=== PATIENT | male | born 1965 | race Caucasian/White ===

== ENCOUNTER 2025-05-06 10:02 | Inpatient (IN) | payer OTHER ==
[~2025-05-06] VITALS: Ht 167.6 cm; Wt 81.8 kg
[2025-05-06 10:42] LABS: COVID AG,FIA SOURCE NASAL SWAB
[2025-05-06 10:42] LABS: PLATELET COUNT (AUTO) 319 K/uL (150-450); RED BLOOD CELL COUNT(AUTO) 4.70 MIL/uL (4.50-5.90); RED CELL DISTRIBUTION WIDTH 12.8 % (11.5-14.5); WHITE BLOOD COUNT (AUTO) 8.5 K/uL (4.5-11.0)
[2025-05-06 10:50] LABS: CALCIUM, TOTAL 9.2 mg/dL (8.8-10.5); CREATININE 0.89 mg/dL (0.60-1.30); GLOMERULAR FILTR. RATE CALC > 60 mL/min (>60); GLUCOSE,RANDOM 196 mg/dL (70-110); SODIUM SERUM 134 mmol/L (136-145); UREA NITROGEN, BLOOD 10 mg/dL (7-18)
[2025-05-06] MEDS: SULFAMETHOX/TRIMETH DS 800-160 MG/TABLET PO ONE (10:58)
[2025-05-06] MEDS: ACETAMINOPHEN 500 MG TABLET PO ONE (10:58)
[2025-05-06] MEDS: BACITRACIN 0.9 GM PACKET OINTMENT TP ONE (10:58)
[2025-05-06] MEDS: CEPHALEXIN MONOHYDRATE 500 MG CAPSULE PO ONE (10:59)
[2025-05-06 11:02] LABS: SARS-COV2 (COVID) ANTIGEN,FIA Negative (Negative)
[2025-05-06] MEDS: TAMSULOSIN HCL 0.4 MG CAPSULE PO ONE (11:24)
[2025-05-06] MEDS ORDERED: DEXTROSE 50%-WATER 25 GM/50 ML SYRINGE IVP PRN (12:45)
[2025-05-06] MEDS ORDERED: MAGNESIUM HYDROXIDE SUSPENSION 30 ML UDCUP PO PRN (12:45)
[2025-05-06] MEDS ORDERED: ACETAMINOPHEN 325 MG TABLET PO PRN (12:45)
[2025-05-06] MEDS ORDERED: SODIUM CHLORIDE 0.9% 1,000 ML IV ONE (12:45)
[2025-05-06] MEDS ORDERED: OxyCODONE HCL/ACETAMINOPHEN 5-325 MG TABLET PO PRN (12:45)
[2025-05-06] MEDS ORDERED: ZOLPIDEM TARTRATE 5 MG TABLET PO PRN (12:45)
[2025-05-06 13:33] LABS: APPEARANCE,URINE HAZY (CLEAR); GLUCOSE, URINE (UA) 300-500 mg/dL (NEGATIVE); LEUKOCYTE ESTERASE ,URINE NEGATIVE (NEGATIVE); NITRATE,URINE NEGATIVE (NEGATIVE); OCCULT BLOOD,URINE NEGATIVE (NEGATIVE); SPECIFIC GRAVITIY, URINE 1.023 (1.003-1.030)
[2025-05-06 13:39] LABS: AMPHET/METH SCREEN,URINE POSITIVE (NEGATIVE); BARBITURATE SCREEN, URINE NEGATIVE (NEGATIVE); CANNABINOID SCREEN,URINE NEGATIVE (NEGATIVE); COCAINE SCREEN,URINE NEGATIVE (NEGATIVE); METHADONE SCREEN, URINE NEGATIVE (NEGATIVE)
[2025-05-06 13:46] LABS: ALCOHOL, URINE DRUG SCREEN NEGATIVE (NEGATIVE)
[2025-05-06 13:47] LABS: PH,URINE DRUG SCREEN 8.0 (5.0-8.0)
[2025-05-06 15:03] VITALS: BP 136/84; PULSE 68; RESP 18; TEMP 98.6; O2SAT 98
[2025-05-06 18:40] LABS: GLUCOMETER DEV NAME(LOC) 6N.2C; GLUCOSE,POINT OF CARE 174 MG/DL (70-110)
[2025-05-06] MEDS: INSULIN LISPRO 100 UNITS/ML SQ PRN (18:53)
[2025-05-06 19:58] VITALS: BP 140/88; PULSE 79; RESP 18; TEMP 97.9; O2SAT 97
[2025-05-06] MEDS: SULFAMETHOX/TRIMETH DS 800-160 MG/TABLET PO SCH (20:50)
[2025-05-07 01:30] LABS: GLUCOMETER DEV NAME(LOC) 6N.2C; GLUCOSE,POINT OF CARE 216 MG/DL (70-110)
[2025-05-07 05:39] VITALS: BP 136/91; PULSE 77; RESP 20; TEMP 97.9; O2SAT 98
[2025-05-07] MEDS: FAMOTIDINE 20 MG TABLET PO SCH (09:00)
[2025-05-07 17:16] LABS: GLUCOMETER DEV NAME(LOC) 6S.2; GLUCOSE,POINT OF CARE 176 MG/DL (70-110)
[2025-05-07 18:26] LABS: GLUCOMETER DEV NAME(LOC) 6S.2; GLUCOSE,POINT OF CARE 138 MG/DL (70-110)
[2025-05-07 20:16] VITALS: BP 154/92; PULSE 77; RESP 19; TEMP 98.1; O2SAT 98
[2025-05-08 03:46] VITALS: BP 133/79; PULSE 67; RESP 18; TEMP 98.4; O2SAT 99
[2025-05-08 05:26] LABS: GLUCOMETER DEV NAME(LOC) 6N.2C; GLUCOSE,POINT OF CARE 192 MG/DL (70-110)
[2025-05-08] MEDS: POTASSIUM CHLORIDE 20 MEQ ER TABLET PO ONE (05:35)
[2025-05-08 06:30] LABS: GLUCOMETER DEV NAME(LOC) 6N.2C; GLUCOSE,POINT OF CARE 170 MG/DL (70-110)
[2025-05-08 08:25] VITALS: BP 137/82; PULSE 74; RESP 18; TEMP 98.1; O2SAT 98
[2025-05-08] MEDS: LOSARTAN POTASSIUM 25 MG TABLET PO ONE (11:18)
[2025-05-08 12:15] LABS: PLATELET COUNT (AUTO) 358 K/uL (150-450); RED BLOOD CELL COUNT(AUTO) 5.13 MIL/uL (4.50-5.90); RED CELL DISTRIBUTION WIDTH 12.9 % (11.5-14.5); WHITE BLOOD COUNT (AUTO) 6.6 K/uL (4.5-11.0)
[2025-05-08 12:23] LABS: CALCIUM, TOTAL 9.6 mg/dL (8.8-10.5); CREATININE 0.94 mg/dL (0.60-1.30); GLOMERULAR FILTR. RATE CALC > 60 mL/min (>60); GLUCOSE,RANDOM 171 mg/dL (70-110); SODIUM SERUM 135 mmol/L (136-145); UREA NITROGEN, BLOOD 12 mg/dL (7-18)
[2025-05-08 12:30] LABS: ASPARTATE AMINOTRANSFERASE 31 U/L (15-37); TOTAL PROTEIN, SERUM 7.6 g/dL (6.4-8.2)
[2025-05-08 14:10] LABS: GLUCOMETER DEV NAME(LOC) 6S.1D; GLUCOSE,POINT OF CARE 185 MG/DL (70-110)
[2025-05-08] MEDS ORDERED: LOSA-381 PO (18:06)
[2025-05-08] MEDS ORDERED: SULF-261 PO (18:07)
[2025-05-08] MEDS ORDERED: TAMS0.4C94 PO (18:08)
[2025-05-08] MEDS ORDERED: METF-81 PO (18:08)
[2025-05-08 19:22] VITALS: BP 153/87; PULSE 88; RESP 18; TEMP 98.1; O2SAT 99
[2025-05-08 20:36] LABS: GLUCOMETER DEV NAME(LOC) 6N.2C; GLUCOSE,POINT OF CARE 157 MG/DL (70-110)
[2025-05-08 20:36] LABS: GLUCOMETER DEV NAME(LOC) 6N.2C; GLUCOSE,POINT OF CARE 152 MG/DL (70-110)
[2025-05-09 05:09] VITALS: BP 135/91; PULSE 74; RESP 18; TEMP 97.7; O2SAT 99
[2025-05-09] MEDS ORDERED: TAMSULOSIN HCL 0.4 MG CAPSULE PO SCH (09:00)
[2025-05-09] MEDS ORDERED: LOSARTAN POTASSIUM 25 MG TABLET PO SCH (09:00)
[2025-05-09 15:56] LABS: GLUCOMETER DEV NAME(LOC) 6N.2C; GLUCOSE,POINT OF CARE 205 MG/DL (70-110)
== END 2025-05-09 06:57 | DRG 603 ==
LOC: EMS 10:05 → EDH 12:39 → 6N 15:00
PROVIDERS: ADMIT Internal Medicine; ATTEND Internal Medicine
DX: L08.89 Other specified local infections of the skin and subcutaneous tissue (principal); R45.851 Suicidal ideations; F02.83 Dementia in other diseases classified elsewhere, unspecified severity, with mood disturbance; F02.84 Dementia in other diseases classified elsewhere, unspecified severity, with anxiety; E11.9 Type 2 diabetes mellitus without complications; F15.10 Other stimulant abuse, uncomplicated; F43.29 Adjustment disorder with other symptoms; E87.6 Hypokalemia; G30.9 Alzheimer's disease, unspecified; F31.9 Bipolar disorder, unspecified; Z20.822 Contact with and (suspected) exposure to COVID-19; I10 Essential (primary) hypertension; N40.0 Benign prostatic hyperplasia without lower urinary tract symptoms; Z83.3 Family history of diabetes mellitus; Z91.51 Personal history of suicidal behavior
CPT/HCPCS: 80048; 80053; 80307; 81001; 82962; 85025; 99285; G0480